=== PATIENT | female | born 1950 | race Caucasian/White ===

== ENCOUNTER 2022-02-03 00:28 | Day surgery (SDC) | payer MEDICARE, SELFPAY ==
[2022-01-22 13:46] VITALS: BMI 41.2
[2022-02-03 09:54] VITALS: BP 135/86; PULSE 109; RESP 18; TEMP 35.8; O2SAT 97
[2022-02-03] MEDS: LACTATED RINGERS 1,000 ML 150 ML IV CONT (09:59)
--- NOTE | 2022-02-03 10:49 | WPDANESEPPF ---
Anes - Initial Pre Proc Eval Procedure: Operation Date: 02/03/22 11:00 Proposed Procedures p Colonoscopy - Eloy Marroquin MD Date/Time: 02/03/22 10:49 Surgeon: Eloy Marroquin MD Pre Op Diagnosis: positive cologuard Patient Data Age: 71 Gender: F Height: 1.63 m Weight: 110.1 kg Last Vital Signs Temp 96.5 F L 02/03/22 09:54 Pulse 109 H 02/03/22 09:54 Resp 18 02/03/22 09:54 BP 135/86 02/03/22 09:54 Pulse Ox 97 02/03/22 09:54 Allergies Allergy/AdvReac Type Severity Reaction Status Date / Time shellfish derived Allergy Severe SWELLING Verified 02/03/22 09:52 Sulfa (Sulfonamide Allergy Unknown HIVES Verified 02/03/22 09:52 Antibiotics) INSECT BITES Allergy Severe SWELLING Uncoded 02/03/22 09:52 Home Medications Medication Instructions Recorded Confirmed Type aspirin 81 mg tablet,delayed 81 mg PO DAILY #1 tablet 09/21/19 02/03/22 Rx release glucosamine [id number] 1 tablet PO DAILY #1 tablet 09/21/19 02/03/22 Rx therese 1,500 mg-400 unit-100 mg tablet lisinopril 20 mg tablet 20 mg PO DAILY 90 Days #90 tablet 07/31/20 02/03/22 Rx meloxicam 15 mg tablet 15 mg PO DAILY #90 tablet 07/31/20 02/03/22 Rx rosuvastatin 10 mg tablet 10 mg PO DAILY 90 Days #90 tablet 07/31/20 02/03/22 Rx [facility] 1 tablet PO DAILY 01/22/22 02/03/22 History calcium carbonate-vitamin D3 1 tablet PO DAILY 01/22/22 02/03/22 History [Calcium 500 + D (D3)] levothyroxine [Synthroid] 75 mcg PO DAILY 01/22/22 02/03/22 History mecobalamin (vitamin B12) 5,000 mcg PO DAILY 01/22/22 02/03/22 History omega 3-npx-qpd-fish oil [Fish Oil] 4 cap PO DAILY 01/22/22 02/03/22 History Patient hx anesthesia problems: none Family hx anesthesia problems: none Results Review: All pre-operative results and documents have been reviewed as part of the pre-operative evaluation. [facility] Past Medical History Medical History (Updated 07/25/21 @ 12:36 by MICHAEL Milner) BMI greater than 40 Class 3 obesity Hypertensive heart disease without heart failure Hyperuricemia Hypothyroidism, unspecified Left knee DJD Mixed hyperlipidemia Neuropathy of left lower extremity Polyosteoarthritis, unspecified Primary localized osteoarthritis of both knees Shingles (herpes zoster) polyneuropathy Spondylosis of lumbar region without myelopathy or radiculopathy Vitamin B12 deficiency Vitamin D deficiency, unspecified Surgical History Surgical History (Updated 07/25/21 @ 12:14 by MICHAEL Milner) Presence of right artificial knee joint S/P total knee arthroplasty Family History Family History Father Family history of osteoarthritis Mother Family history of coronary artery disease Other Family history of arthritis Hypertension Social History Social History Smoking status: Never smoker Second hand tobacco smoke exposure: No Alcohol intake: never Living arrangements: with family Spiritual care concerns: No Anes - Eval Final PreProcedure Day of Procedure 02/03/22 10:49 Patient weight: morbidly obese Heart: regular rate and rhythm Lungs: clear to auscultation Airway: Mallampati scale class III Neurological: alert and oriented Last oral intake: >/= 8 hours ASA classification: III Emergent: no Anesthetic plan: proceed Anesthesia type and monitoring: general GIVS and standard monitoring Results Review: All pre-operative results and documents have been reviewed as part of the pre-operative evaluation. Informed Consent: The patient's anesthetic plan and its attendant risks and benefits were discussed with the patient/family/POA. Questions were solicited and answers provided to the satisfaction of the patient/family/POA.
--- NOTE | 2022-02-03 11:00 | PM.HPGS ---
History of Present Illness History of Present Illness Consent: Risks, benefits, and alternatives have been discussed and questions answered. Patient agrees to proceed with procedure. Chief complaint: positive cologuard Narrative: Flavia Cabral is a 71 year old female with colonoscopy over 10 years ago and recently was doing cologuard- last time positive. Review of Systems Constitutional: Constitutional: Denies headache(s) and Denies weakness Eyes: Eyes: Denies blurry vision ENT: Reports Normal hearing present, Denies headache(s) and Denies neck pain Cardiovascular: Cardiovascular: Denies chest pain and Denies dyspnea Respiratory: Respiratory: Denies dyspnea Gastrointestinal: Gastrointestinal: Reports no additional gastrointestinal complaints Genitourinary: Genitourinary: Denies dysuria Musculoskeletal: Musculoskeletal: Denies neck pain Integumentary/Breasts: Skin/Breast: Denies dry skin Neurologic: Reports Normal hearing present, Denies headache(s) and Denies weakness Psychiatric: Psychiatric: Denies anxiety Endocrine: Endocrine: Denies change in body appearance Hematologic/Lymphatic: Hematologic/Lymphatic: Denies easy bleeding Allergic/Immunologic: Allergic/Immunologic: Denies urticaria PMFSH Past Medical History Medical History (Updated 02/03/22 @ 11:01 by Eloy Marroquin MD) BMI greater than 40 Class 3 obesity Hypertensive heart disease without heart failure Hyperuricemia Hypothyroidism, unspecified Left knee DJD Mixed hyperlipidemia Neuropathy of left lower extremity Polyosteoarthritis, unspecified Positive colorectal cancer screening using Cologuard test Primary localized osteoarthritis of both knees Shingles (herpes zoster) polyneuropathy Spondylosis of lumbar region without myelopathy or radiculopathy Vitamin B12 deficiency Vitamin D deficiency, unspecified Surgical History Surgical History (Updated 07/25/21 @ 12:14 by MICHAEL Milner) Presence of right artificial knee joint S/P total knee arthroplasty Family History Family History Father Family history of osteoarthritis Mother Family history of coronary artery disease Other Family history of arthritis Hypertension Social History Social History Smoking status: Never smoker Second hand tobacco smoke exposure: No Alcohol intake: never Living arrangements: with family Spiritual care concerns: No Meds Home Medications and Allergies Home Medications Medication Instructions Recorded Confirmed Type aspirin 81 mg tablet,delayed 81 mg PO DAILY #1 tablet 09/21/19 02/03/22 Rx release glucosamine [id number] 1 tablet PO DAILY #1 tablet 09/21/19 02/03/22 Rx therese 1,500 mg-400 unit-100 mg tablet lisinopril 20 mg tablet 20 mg PO DAILY 90 Days #90 tablet 07/31/20 02/03/22 Rx meloxicam 15 mg tablet 15 mg PO DAILY #90 tablet 07/31/20 02/03/22 Rx rosuvastatin 10 mg tablet 10 mg PO DAILY 90 Days #90 tablet 07/31/20 02/03/22 Rx [facility] 1 tablet PO DAILY 01/22/22 02/03/22 History calcium carbonate-vitamin D3 1 tablet PO DAILY 01/22/22 02/03/22 History [Calcium 500 + D (D3)] levothyroxine [Synthroid] 75 mcg PO DAILY 01/22/22 02/03/22 History mecobalamin (vitamin B12) 5,000 mcg PO DAILY 01/22/22 02/03/22 History omega 0-lnu-ano-fish oil [Fish Oil] 4 cap PO DAILY 01/22/22 02/03/22 History Allergies Allergy/AdvReac Type Severity Reaction Status Date / Time shellfish derived Allergy Severe SWELLING Verified 02/03/22 09:52 Sulfa (Sulfonamide Allergy Unknown HIVES Verified 02/03/22 09:52 Antibiotics) INSECT BITES Allergy Severe SWELLING Uncoded 02/03/22 09:52 Vital Signs Vital Signs - 24 hr 02/03/22 09:54 Temperature 96.5 F L Pulse Rate 109 H Respiratory Rate 18 Blood Pressure 135/86 Pulse Oximetry 97 Exam Const: General: comfortable and no acute distress HENMT:
[2022-02-03 11:24] VITALS: BP 107/67; PULSE 87; RESP 16; O2SAT 98
[2022-02-03 11:34] VITALS: BP 114/72; PULSE 86; RESP 16; O2SAT 100
[2022-02-03 11:44] VITALS: BP 125/80; PULSE 82; RESP 20; O2SAT 100
== END 2022-02-03 11:48 | disposition home or self-care (01) ==
PROVIDERS: PCP Internal Medicine; Visit Provider Internal Medicine Gastroenterology
PROC: 0DJD8ZZ Inspection of Lower Intestinal Tract, Via Natural or Artificial Opening Endoscopic (ICD-10-PCS; CPT 45378; principal; 2022-02-03 11:00)
DX: R19.5 Other fecal abnormalities (principal); D12.2 Benign neoplasm of ascending colon; K64.8 Other hemorrhoids; I11.9 Hypertensive heart disease without heart failure; E03.9 Hypothyroidism, unspecified; E78.2 Mixed hyperlipidemia; E55.9 Vitamin D deficiency, unspecified; E53.8 Deficiency of other specified B group vitamins; M47.816 Spondylosis without myelopathy or radiculopathy, lumbar region; B02.23 Postherpetic polyneuropathy; Z79.82 Long term (current) use of aspirin; E66.01 Morbid (severe) obesity due to excess calories; Z68.41 Body mass index [BMI] 40.0-44.9, adult
CPT/HCPCS: 45380; 88305; J2704; J7120

== ENCOUNTER 2024-02-16 08:56 | Outpatient (CLI) | payer MEDICARE, SELFPAY ==
--- NOTE | ~2024-02-16 | XR_ITS ---
EXAMINATION: XR lg joint inject/asp w image DATE: 02/16/2024 09:56 INDICATION: Right hip arthritis. TECHNIQUE: A time-out was performed to verify the patient's name, date of , and procedure to b e performed. The procedure including the risks, benefits, and alternatives was discussed with the pat ient. Risks discussed included bleeding and infection. The patient understood the risks and agreed to proceed. The skin overlying the right hip joint was prepped and draped in usual sterile fashion. A nesthetic was administered with 1% lidocaine subcutaneously. A 22 G needle was advanced under fluoro scopic guidance into the joint. Subsequently, injectate consisting of 2 mL 0.5% bupivacaine and 1 mL 80 mg/mL Depo-Medrol was instilled. The needle was removed and the entry site was cleaned and dresse d. There were no immediate complications. Fluoroscopy exposure time was 0.1 minutes. The total numbe r of images was 1. FINDINGS: Real-time fluoroscopy demonstrates the needle in the right hip joint. Patient's pain prior to procedure:03/20. Patient's pain following the procedure: 11/20. IMPRESSION: 1. Fluoroscopy guided right hip joint injection of local anesthetic and steroid with decrease in the patient's presenting pain. Reviewed, dictated and finalized at location A.
== END 2024-02-16 08:57 | disposition home or self-care (01) ==
PROVIDERS: PCP Family Medicine; Visit Provider Orthopaedic Surgery
DX: M16.11 Unilateral primary osteoarthritis, right hip (principal)
CPT/HCPCS: 20610; 77002; J1010

== ENCOUNTER 2024-03-21 14:10 | Outpatient (CLI) | payer MEDICARE, SELFPAY ==
--- NOTE | ~2024-03-21 | MR_ITS ---
MRI of the lumbar spine Clinical History: Back pain Technique: Axial T2-weighted images, and sagittal T1-weighted, T2-weighted, and and T2 fat-sat images were acquired. Findings: There is mild dextroscoliosis. No fracture or subluxation evident otherwise. No suspicious bone marrow signal abnormality seen. At L1-L2, there is moderate degenerative spurring. There is minimal disc bulge and mild facet arthrop athy. No central canal stenosis. There is moderate bilateral neural foraminal narrowing. At L2-L3, there is moderate to advanced degenerative disc change. There is mild disc bulge with moder ate facet arthropathy. No central canal stenosis. There is moderate left neural foraminal narrowing. Right neural foramen preserved. At L3-L4, there is advanced degenerative disc narrowing. There is mild disc bulge with moderate to ad vanced facet arthropathy. No central canal stenosis. There is moderate to severe left neural foramina l narrowing and minimal right neural foraminal narrowing. At L4-L5, there is moderate degenerative distended. There is diffuse disc bulge with severe facet art hropathy. No central canal stenosis. There is moderate right neural foraminal narrowing. Left neural foramen preserved. At L5-S1, there is minimal disc bulge with moderate to advanced facet arthropathy. No central canal s tenosis. There is mild to moderate right neural foraminal narrowing. Paravertebral soft tissues are unremarkable. Impression: Moderate degenerative spondylosis, as above. Reviewed, dictated and finalized at [facility]. Impression: Moderate degenerative spondylosis, as above.
== END 2024-03-21 14:11 ==
LOC: MICIMG 14:11
PROVIDERS: PCP Family Medicine; Visit Provider Orthopaedic Surgery
DX: M79.604 Pain in right leg (principal); M47.896 Other spondylosis, lumbar region
CPT/HCPCS: 72148

== ENCOUNTER 2025-01-30 15:48 | Outpatient (CLI) | payer MEDICARE, SELFPAY ==
[2025-01-30 16:34] LABS: Albumin Level 4.4 g/dL (3.5-5.1); Calcium 9.6 mg/dL (8.4-10.2)
--- OUTSIDE RECORDS SUMMARY | 2025-01-30 17:51 | XMS_ITS | Clinical Summary ---
Author Organization [facility] Address [facility] [place] [address] Care Team Providers Care Director Of Software Development Name Role Phone Kennedy Gutierrez MD Primary Care Provider [phone] Allergies Active Allergy Reactions Criticality Noted Date Comments Shellfish-Derived Products Swelling Sulfa Antibiotics Hives,Swelling 12/06/2023 Medications levothyroxine (SYNTHROID) 300 MCG tablet Take 1 tablet (300 mcg total) by mouth every morning. Active Cholecalciferol (VITAMIN D) 50 MCG (2000 UT) Cap Take 2,000 mg by mouth daily. Active lisinopril (PRINIVIL) 20 MG tablet Take 1 tablet (20 mg total) by mouth daily. 09/14/2023 Active rosuvastatin (CRESTOR) 10 MG tablet Take 1 tablet (10 mg total) by mouth daily. 11/27/2023 Active meloxicam (MOBIC) 15 MG tablet Take 1 tablet (15 mg total) by mouth daily. Active SYNTHROID 75 MCG tablet Take 1 tablet (75 mcg total) by mouth every morning. 12/05/2023 Active calcium carb-cholecalci ferol (CALTRATE 600+D) 600-20 MG-MCG tablet Take 1 tablet by mouth daily. Active Cyanocobalamin (VITAMIN B 12) 500 MCG Tab Active BABY ASPIRIN OR Take 81 mg by mouth daily. Active glucosamine-cho ndroitin 500-400 MG Cap Take 3 capsules by mouth daily. Active [place]-3 Fatty Acids (FISH OIL) 500 MG capsule Take 1,000 mg by mouth daily. Active HYDROcodone-wendie taminophen (NORCO) 5-325 MG tabletIndicatio ns:Acute Pain < 3 Day Supply Take 1 tablet by mouth every 6 (six) hours as needed for Pain. Indications: Acute Pain < 3 Day Supply 12 tablet 12/06/2023 Active baclofen (LIORESAL) 10 MG tablet Take 1 tablet (10 mg total) by mouth 2 (two) times daily as needed (Muscle pain). 20 tablet 12/06/2023 Active Family History Medical History Relation Comments Breast Cancer Maternal Aunt UNSURE OF AGE Relation Status Comments Maternal Aunt Alive Social History Tobacco Use Types Packs/Day Years Used Date Smoking Tobacco: Never Smokeless Tobacco: Never Tobacco Cessation:Counseling Given: Not Answered Alcohol Use Standard Drinks/Week Comments Not Currently 0 (1 standard drink = 0.6 oz pur e alcohol) Comments Unknown Sex and Gender Information Value Date Recorded Sex Assigned at Female 10/24/2024 9:50 AM GARMENT SEWING MACHINE OPERATOR Legal Sex Female 3:53 PM CDT Gender Identity Not on file Sexual Orientation Not on file Last Filed Vital Signs Vital Sign Reading Time Taken Comments Blood Pressure 140/65 12/06/2023 7:07 PM GARMENT SEWING MACHINE OPERATOR Pulse 80 12/06/2023 7:07 PM GARMENT SEWING MACHINE OPERATOR Temperature 36.2 C (97.1 F) 12/06/2023 7:07 PM GARMENT SEWING MACHINE OPERATOR Respiratory Rate 16 12/06/2023 7:07 PM GARMENT SEWING MACHINE OPERATOR Oxygen Saturation 97% 12/06/2023 7:07 PM GARMENT SEWING MACHINE OPERATOR Inhaled Oxygen Concentration - - Weight 113.4 kg (250 lb) 12/06/2023 5:58 PM GARMENT SEWING MACHINE OPERATOR Height 162.6 cm (5' 4 ) 12/06/2023 5:58 PM GARMENT SEWING MACHINE OPERATOR Body Mass Index 42.91 12/06/2023 5:58 PM GARMENT SEWING MACHINE OPERATOR Plan of Treatment Health Maintenance Due Date Last Done Comments Hepatitis C 1966 DTaP, Tdap and Td Vaccines ( 1 - Tdap) 12/13/1967 Pneumococcal Vaccine: 50+ Years (1 of 1 - PCV) 1998 Zoster Vaccines (1 of 2) 1998 Annual Medicare Wellness Visit 2013 RSV Immunization or 60+ Years (1 - 1-dose 75+ series) 12/13/2023 COVID-19 Vaccine ( - 2023-2 5 season) 2024 Dexa Scan (General) Completed 10/24/2024, 10/23/2022, 10/08/2020 Meningococcal B Vaccine Aged Out No l onger eligible based on patient's age to complete this topic Meningococcal Vaccine Aged Out No deysi edie eligible based on patient's age to complete this topic RSV Immunizations Under 20 Months Aged Out No longer eligible b ased on patient's age to complete this topic Procedures Procedure Name Priority Date/Time Associated Diagnosis Comments BONE DENSITY/DEXA Routine 10/24/2024 10: 30 AM GARMENT SEWING MACHINE OPERATOR Osteoporosis Post-menopause from Last 3 Months or Most Recently Relevant to Health Maintenance Results * BONE DENSITY/DEXA (10/24/2024 10:30 AM GARMENT SEWING MACHINE OPERATOR) Anatomical Region Laterality Modality Bone Bone Density 10/24/2024 2:06 PM GARMENT SEWING MACHINE OPERATOR Impressions 10/24/2024 2:07 PM GARMENT SEWING MACHINE OPERATOR IMPRESSION: WHO Classification: osteoporosis RECOMMENDATIONS: All patients should ensure an adequate intake of dietary calcium and vitamin D. The NOF recommend adults under the age of 50 need 1000 mg of calcium and 400-800 IU of vitamin D daily. Effective therapy for the prevention and treatment of osteoporosis include bisphosphonates. FOLLOW-UP: People with diagnosed cases of osteoporosis or at high risk for fracture should have regular bone mineral density test. For patients eligible for Medicare, routine testing is allowed once every 2 years. Testing frequency can be increased to one year for patients who have rapidly progressing disease, those who are receiving or discontinuing medical therapy to restore bone mass, or have additional risk factors. Ordered By: PETRONA PICKARD Interpreted By: Haris Yeager MD, 10/24/2024 2:06 PM Narrative 10/24/2024 2:07 PM GARMENT SEWING MACHINE OPERATOR [facility] [address] [place] [address] EXAMINATION: BONE DENSITY/DEXA INDICATIONS: Age-related osteoporosis without current pathological fracture, Asymptomatic menopausal state TECHNIQUE: DEXA bone mineral density evaluation was performed in the AP projection over the lumbar spine and both hips utilizing standard imaging techniques. FINDINGS: The BMD measured at the AP spine L1-L4 is 1.058 g/cm? with a T-score of 0.1. The BMD measured at the left femoral neck is 0.567 g/cm? with a T-score of -2.5. The BMD measured at the left hip is 0.882 g/cm? with a T-score of -0.5. The BMD measured at the right femoral neck is 0.666 g/cm? with a T-score of - 1.7. The BMD measured at the right hip is 0.944 g/cm? with a T-score of 0.0. FRAX 10-year fracture risk: Not reported because some T score is at or below -2.5 Procedure Note Haris Yeager MD - 10/24/2024 [facility] [address] [place] [address] EXAMINATION: BONE DENSITY/DEXA INDICATIONS: Age-related osteoporosis without current pathologicalfracture, Asymptomatic menopausal state TECHNIQUE: DEXA bone mineral density evaluation was performed in the APprojection over the lumbar spine and both hips utilizing standard imagingtechniques. FINDINGS: The BMD measured at the AP spine L1-L4 is 1.058 g/cm? with a T-score of0.1. The BMD measured at the left femoral neck is 0.567 g/cm? with a T-score of-2.5. The BMD measured at the left hip is 0.882 g/cm? with a T-score of -0.5. The BMD measured at the right femoral neck is 0.666 g/cm? with a T-scoreof -1.7. The BMD measured at the right hip is 0.944 g/cm? with a T-score of 0.0. FRAX 10-year fracture risk: Not reported because some T score is at or below -2.5 IMPRESSION: WHO Classification: osteoporosis RECOMMENDATIONS: All patients should ensure an adequate intake of dietary calcium andvitamin D. The NOF recommend adults under the age of 50 need 1000 mg ofcalcium and 400-800 IU of vitamin D daily. Effective therapy for theprevention and treatment of osteoporosis include bisphosphonates. FOLLOW-UP: People with diagnosed cases of osteoporosis or at high risk for fractureshould have regular bone mineral density test. For patients eligible forMedicare, routine testing is allowed once every 2 years. Testing frequencycan be increased to one year for patients who have rapidly progressingdisease, those who are receiving or discontinuing medical therapy torestore bone mass, or have additional risk factors. Ordered By: PETRONA PICKARD Interpreted By: Haris Yeager MD, 10/24/2024 2:06 PM Petrona Pickard HOSPITAL ADMISSIONS CLERK-BC DEXA Final Resul t from Last 3 Months or Most Recently Relevant to Health Maintenance Insurance [employer] Care Teams Director Of Software Development Relationship Specialty Start Date End Date Kennedy Gutierrez MD [address] [place] [id number] PCP - General FAMILY PRACTICE 10/23/22
--- OUTSIDE RECORDS SUMMARY | 2025-01-30 17:51 | XMS_ITS | Encounter Summary ---
Author Organization [facility] Address [address] [place] [id number] Care Team Providers Care Automation Operator Name Role Phone Jung Davila MD Primary Care Provider [facility] Zurdo Burr MD Primary Care Provider [phone] Kennedy Gutierrez MD Primary Care Provider [phone] Encounter Details Date Type Department Care Team (Late st Contact Info) Description 09/15/2016 Abstract [facility] CONVERSION [address] [place], [place] [id number] , Generic ConversionMD Social History Tobacco Use Types Packs/Day Years Used Date Smoking Tobacco: Never Assessed Comments Unknown Sex and Gender Information Value Date Recorded Sex Assigned at Female 10/24/2024 9:50 AM GEOMORPHOLOGY TEACHER Legal Sex Female 3:53 PM CDT Gender Identity Not on file Sexual Orientation Not on file documented as of this encounter Plan of Treatment Not on file documented as of this encounter Visit Diagnoses Not on filedocumented in this encounter Care Teams Automation Operator Relationship Specialty Start Date End Date Jung Davila MD PCP - General INTERNAL MEDICINE 04/20/19 02/12/21 Zurdo Burr MD [address] [place] [id number] PCP - General INTERNAL MEDICINE 02/13/21 10/22/22 Kennedy Gutierrez MD [address] [place] [id number] PCP - General FAMILY PRACTICE 10/23/22 documented as of this encounter
== END 2025-01-30 15:49 | disposition home or self-care (01) ==
LOC: ANHLAB 15:50
PROVIDERS: PCP Nurse Practitioner Family; Visit Provider Obstetrics & Gynecology Gynecology
DX: M81.0 Age-related osteoporosis without current pathological fracture (principal); Z92.29 Personal history of other drug therapy
CPT/HCPCS: 36415; 82040; 82310